=== PATIENT | male | born 1995 | race Caucasian/White ===

== ENCOUNTER 2017-10-02 20:08 | Emergency (ER) | payer OTHER ==
[~2017-10-02] VITALS: Ht 190.5 cm; Wt 157.8 kg
[2017-10-02 20:15] VITALS: Ht 190.5 cm; Wt 157.8 kg
[2017-10-02 21:46] VITALS: BP 136/82
== END 2017-10-02 21:46 | disposition home or self-care (01) ==
LOC: ED 20:08
DX: F11.23 Opioid dependence with withdrawal (principal)
CPT/HCPCS: J2550; Q0162

== ENCOUNTER 2019-02-16 21:44 | Emergency (ER) | payer MEDICAID ==
[~2019-02-16] VITALS: Ht 190.5 cm; Wt 147.0 kg
[2019-02-16 22:11] VITALS: Ht 190.5 cm; Wt 147.0 kg
[2019-02-17 00:05] VITALS: BP 161/97
== END 2019-02-17 00:05 | disposition left against medical advice (07) ==
LOC: ED 21:44
DX: K59.00 Constipation, unspecified (principal); K60.0 Acute anal fissure; H10.89 Other conjunctivitis
CPT/HCPCS: J7030; V2632

== ENCOUNTER 2019-11-20 21:24 | Emergency (ER) | payer SELFPAY ==
[~2019-11-20] VITALS: Ht 190.5 cm; Wt 133.8 kg
[2019-11-20 21:27] VITALS: Ht 190.5 cm; Wt 133.8 kg
[2019-11-20 22:01] VITALS: BP 153/90
== END 2019-11-20 22:01 | disposition home or self-care (01) ==
LOC: ED 21:24
DX: S05.01XA Injury of conjunctiva and corneal abrasion without foreign body, right eye, initial encounter (principal); H10.89 Other conjunctivitis; X58.XXXA Exposure to other specified factors, initial encounter; Y93.89 Activity, other specified; Y92.89 Other specified places as the place of occurrence of the external cause; Y99.8 Other external cause status